=== PATIENT | male | born 1985 | race Caucasian/White ===

== ENCOUNTER 2016-04-01 09:34 | Emergency (ER) | payer OTHER | END 2016-04-01 11:47 | disposition home or self-care (01) | DX: S63.641A Sprain of metacarpophalangeal joint of right thumb, initial encounter (principal); X58.XXXA Exposure to other specified factors, initial encounter; Y93.74 Activity, frisbee; Y99.8 Other external cause status ==

== ENCOUNTER 2016-06-12 07:54 | Emergency (ER) | payer OTHER ==
[2016-06-12] MEDS ORDERED: LIDOCAINE 1% 2 ML VIAL ONE (09:31)
== END 2016-06-12 11:20 | disposition home or self-care (01) ==
DX: S06.0X0A Concussion without loss of consciousness, initial encounter (principal); S01.01XA Laceration without foreign body of scalp, initial encounter; W11.XXXA Fall on and from ladder, initial encounter; Y92.009 Unspecified place in unspecified non-institutional (private) residence as the place of occurrence of the external cause